=== PATIENT | male | born 2000 | race Caucasian/White ===

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

== ENCOUNTER 2024-10-12 14:54 | Outpatient (REF) | payer BC, SELFPAY ==
[2024-10-13 11:30] LABS: Helicobacter pylori Ag, Feces Negative (Negative)
[2024-10-15 22:17] LABS: Calprotectin <50.0 mcg/g
== END 2024-10-12 14:55 | disposition home or self-care (01) ==
LOC: LBN 14:54
PROVIDERS: Visit Provider Nurse Practitioner Adult Health
DX: K52.9 Noninfective gastroenteritis and colitis, unspecified (principal)
CPT/HCPCS: 87338; 83993